=== PATIENT | female | born 1980 | race Caucasian/White ===

== ENCOUNTER 2017-05-03 10:45 | Emergency (ER) | payer OTHER ==
[~2017-05-03] VITALS: Ht 152.4 cm; Wt 44.5 kg
[~2017-05-03 10:45] MED LIST: ALBENZA200 MG PO; AMOXICILLIN 50500 M1 PO; ATIVAN1 MG PO; AUGMENTIN 875875 MG PO; AZITHROMYCIN 2250 MG PO; CIPROFLOXACIN500 M1 PO; FLAGYL500 MG PO; IBUPROFEN 600600 M1 PO; IBUPROFEN 800800 M1; IBUPROFEN 800800 M1 PO; KLONOPIN0.5 MG; KLONOPIN1 MG PO; MEDROLDOSEPACK PO; NOHOMEMEDICATIONS; NORCO 5-325 TA1 EACH PO; PENICILLIN V P500 MG PO; PERCOCET 5-3251 EACH PO; PERIDEX 0.12%473 M1 SSP; PRILOSEC40 MG PO; TRAMADOL 50 MG50 MG PO; ULTRAM 50MG TAB50 MG PO; ZOFRAN ODT4 MG PO; ZPAK PO
[2017-05-03 10:46] VITALS: BP 140/80
[2017-05-03] MEDS ORDERED: IBUPROFEN 600600 M1 PO (11:39)
== END 2017-05-03 11:40 | disposition home or self-care (01) ==
LOC: ER 10:45
DX: S50.02XA Contusion of left elbow, initial encounter (principal); F41.9 Anxiety disorder, unspecified; F17.210 Nicotine dependence, cigarettes, uncomplicated; F10.99 Alcohol use, unspecified with unspecified alcohol-induced disorder; Z88.5 Allergy status to narcotic agent; Z87.19 Personal history of other diseases of the digestive system; W22.09XA Striking against other stationary object, initial encounter; Y93.89 Activity, other specified; Y92.89 Other specified places as the place of occurrence of the external cause; Y99.8 Other external cause status

== ENCOUNTER 2020-03-12 22:02 | Emergency (ER) | payer OTHER ==
[~2020-03-12] VITALS: Ht 152.4 cm; Wt 44.5 kg
[2020-03-12 22:28] LABS: URINE BILIRUBIN NEGATIVE (Negative); URINE BLOOD 2+ (Negative); URINE CLARITY SL CLOUDY; URINE COLOR YELLOW; URINE GLUCOSE-RANDOM* NEGATIVE (Negative); URINE KETONES NEGATIVE (Negative); URINE PROTEIN (DIPSTICK) 1+ (Negative); URINE SPECIFIC GRAVITY 1.025 (1.005-1.035); URINE UROBILINOGEN 0.2 E.U./dl (0.2-1.0)
[2020-03-12 22:30] LABS: URINE LEUKOCYTES-REFLEX 2+ (Negative); URINE NITRITE-REFLEX POSITIVE (Negative)
[2020-03-12 22:55] LABS: SQUAMOUS 0-3 Few /LPF (0-3); URINE RBC 3-10 Few /HPF (0-2); URINE WBC-REFLEX >25 Many /HPF (0-5)
[2020-03-12 22:56] LABS: CASTS None Seen /LPF (None Seen); CRYSTALS None Seen /LPF (None Seen)
[2020-03-12 22:58] LABS: ABSOLUTE NEUTROPHILS 6.3 thou/uL (1.4-8.2); BASOPHILS 0.3 % (0.0-2.0); EOSINOPHILS 1.5 % (0.0-3.0); HEMATOCRIT 35.9 % (37.0-47.0); LYMPHOCYTES 17.2 % (24.0-44.0); MCH 29.4 pg (26.0-34.0); MCHC 33.6 g/dL (28.0-37.0); MCV 87.5 fL (80.0-100.0); MONOCYTES 9.9 % (1.0-8.0); PLATELET COUNT 330 thou/uL (150-400); POLYS 71.1 % (36.0-66.0); RDW 13.5 % (10.5-14.5); WBC 8.9 thou/uL (4.0-11.0)
[2020-03-12 23:12] LABS: ALBUMIN 2.7 g/dL (3.4-5.0); CALCIUM 7.8 mg/dL (8.5-10.1); CREATININE 0.6 mg/dL (0.6-1.0); TOTAL BILIRUBIN 0.2 mg/dL (<0.1-1.0); TOTAL PROTEIN 6.6 g/dL (6.4-8.2)
[2020-03-12 23:13] LABS: POTASSIUM 2.6 mmol/L (3.5-5.1)
[2020-03-13] MEDS ORDERED: PEPCID20 MG PO (00:07)
[2020-03-13] MEDS ORDERED: KEFLEX500 M1 PO (00:07)
[2020-03-13 00:18] VITALS: BP 128/72
--- NOTE | 2020-03-13 09:01 | EKG ---
[facility] [place] [address] ELECTROCARDIOGRAM REPORT Name: CHASE RAYMUNDO Room #: DEP [facility].#: [id number] Admission: 03/12/20 Attend Phys: Discharge: 03/13/20 Date of : 84 Report #: [id number] THIS REPORT FOR: cc: FAM - No family physician/PCP FAM - Family physician unknown Levi Johnson MD ~ THIS REPORT FOR: //name// [facility] ED Test Date: 2020-03-12 Test Time: 23:53:49 Pat Name: CHASE RAYMUNDO Department: Room: Gender: F Incident Response Analyst: LAWRENCE : 1980 Requested By: Red Castillo Order Number: [id number] MD: Levi Johnson Measurements Intervals [place] Rate: 96 P: 70 SD: 182 QRS: 84 QRSD: 93 T: 42 QT: 336 QTc: 425 Interpretive Statements Sinus rhythm Compared to ECG 11/12/2015 13:07:34 No significant changes Electronically Signed On 03-13-2020 8:59:38 CDT by Levi Johnson [email or web address] <ELECTRONICALLY SIGNED> By: Levi Johnson MD 03/13/20 [id number] Levi Johnson MD /TORI
== END 2020-03-13 00:25 | disposition home or self-care (01) ==
LOC: ER 22:02
PROVIDERS: Emergency Medicine
DX: N39.0 Urinary tract infection, site not specified (principal); E87.6 Hypokalemia; R07.9 Chest pain, unspecified; R10.12 Left upper quadrant pain; F17.210 Nicotine dependence, cigarettes, uncomplicated; Z88.6 Allergy status to analgesic agent